=== PATIENT | female | born 1990 | race Caucasian/White ===

== ENCOUNTER 2023-08-19 18:46 | Emergency (ER) | payer OTHER ==
[~2023-08-19] VITALS: Ht 175.2 cm; Wt 131.5 kg
[2023-08-19] MEDS ORDERED: BENADRYL ALLERG25 M5 PO (21:13)
[2023-08-19] MEDS ORDERED: CLARITIN10 MG PO (21:13)
[2023-08-19] MEDS ORDERED: PREDNISONE50 MG PO (21:13)
== END 2023-08-19 19:56 | disposition left against medical advice (07) ==
LOC: ED 18:46
DX: L30.9 Dermatitis, unspecified (principal); F17.210 Nicotine dependence, cigarettes, uncomplicated

== ENCOUNTER → 2024-02-08 | Outpatient (CLI) | payer MEDICAID ==
[~2024-02-08] MED LIST: BENADRYL ALLERG25 M5 PO; CLARITIN10 MG PO; PREDNISONE50 MG PO
[2024-02-08 13:36] LABS: BASO % 0.5 % (0.0-1.0); EOS # 0.1 10*3/uL (0.0-0.4); EOS % 1.6 % (1.0-4.0); HEMATOCRIT 41.2 % (37.0-47.0); LYMPH # 2.2 10*3/uL (1.3-4.4); LYMPH % 27.7 % (27.0-41.0); MEAN CELL VOLUME 95.6 fl (81.0-99.0); MEAN CORPUSCULAR HGB 31.3 pg (27.0-31.0); MEAN CORPUSCULAR HGB CONC 32.8 g/dl (33.0-37.0); MEAN PLATELET VOLUME 8.9 fl (9.6-12.3); MONO # 0.5 10*3/uL (0.1-1.0); MONO % 5.9 % (3.0-9.0); NEUT # 5.1 10*3/uL (2.3-7.9); NEUT % 63.9 % (47.0-73.0); PLATELET COUNT AUTOMATED 341 10*3/uL (130-400); RED BLOOD COUNT 4.31 10*6/uL (4.10-5.10); RED CELL DISTRI WIDTH 14.5 % (0-14.5); RETICULOCYTE % 2.02 % (0.50-2.50); WHITE BLOOD COUNT 7.9 10*3/uL (4.8-10.8)
[2024-02-08 13:38] LABS: BILIRUBIN Negative (Negative); BLOOD Negative (Negative); CLARITY Cloudy (Clear); COLOR Yellow (Yellow); GLUCOSE Negative (Negative); KETONE Negative (Negative); LEUKO ESTERASE 1+ (Negative); NITRITE Negative (Negative); SPECIFIC GRAVITY 1.025 (1.001-1.030); UROBILINOGEN 0.2 E.U./dl (0.0-1.0)
[2024-02-08 13:47] LABS: BACTERIA 3+; EPITHELIAL CELLS 41-50; MUCOUS 1+
[2024-02-08 14:08] LABS: ALKALINE PHOSPHATASE 64 U/L (46-116); CHLORIDE 111 mmol/L (98-107); CHOLESTEROL 95 mg/dL (<200); GAMMA GLUTAMYL TRANSPEPTIDASE 18 U/L (0-73); LDL CHOLESTEROL 31 mg/dL (9-159); POTASSIUM 3.6 mmol/L (3.4-5.1); SGPT/ALT 33 U/L (5-49); T3 UPTAKE 26.7 % (22.4-36.7); THYROXINE (T4) TOTAL 7.5 ug/dl (4.5-10.9); TOTAL PROTEIN 6.7 gm/dL (6.0-8.0); TRIGLYCERIDES 104 mg/dl (<150)
[2024-02-08 14:09] LABS: BUN < 5 mg/dl (9-23)
== END ==
LOC: LAB 12:54
PROVIDERS: ATTEND Family Medicine
DX: R79.89 Other specified abnormal findings of blood chemistry (principal); R53.83 Other fatigue; R74.8 Abnormal levels of other serum enzymes; E78.5 Hyperlipidemia, unspecified; E55.9 Vitamin D deficiency, unspecified

== ENCOUNTER 2024-09-22 08:13 | Emergency (ER) | payer MEDICAID ==
[~2024-09-22] VITALS: Ht 175.2 cm; Wt 135.2 kg
[2024-09-22] MEDS ORDERED: [UNRECOGNIZED DRUG - OTHER] PO (08:59)
[2024-09-22] MEDS ORDERED: ACETAMINOPHEN 325 MG TAB PO ONE (09:40)
[2024-09-22] MEDS ORDERED: BENZONATATE 100 MG CAP PO ONE (09:40)
[2024-09-22] MEDS ORDERED: ALBUTEROL 8 GM INHALER INH ONE (09:40)
[2024-09-22] MEDS ORDERED: INHAL AID 1 KIT DEVICE INH ONE (09:40)
[2024-09-22 11:16] LABS: BILIRUBIN Negative (Negative); BLOOD Negative (Negative); CLARITY Clear (Clear); COLOR Dark Yellow (Yellow); GLUCOSE Negative (Negative); KETONE 2+ (Negative); LEUKO ESTERASE Negative (Negative); NITRITE Negative (Negative); SPECIFIC GRAVITY 1.025 (1.001-1.030)
[2024-09-22 11:33] LABS: BACTERIA 1+; WBC 0-2 wbc/hpf (0-5)
[2024-09-22 11:34] LABS: MUCOUS TRACE
[2024-09-22] MEDS ORDERED: Albuterol Sulf/Ipratropium 3 ML VIAL NEB ONE ×2 (12:55→13:04)
[2024-09-22] MEDS ORDERED: Albuterol Sulfate 2.5 MG/3 ML VIAL NEB ONE ×2 (12:55→13:03)
[2024-09-22 13:02] LABS: BASO % 0.4 % (0.0-1.0); MEAN CELL VOLUME 96.4 fl (81.0-99.0); MEAN CORPUSCULAR HGB 32.3 pg (27.0-31.0); MEAN CORPUSCULAR HGB CONC 33.5 g/dl (33.0-37.0); MEAN PLATELET VOLUME 9.4 fl (9.6-12.3); MONO # 0.5 10*3/uL (0.1-1.0); MONO % 4.9 % (3.0-9.0); NEUT # 9.5 10*3/uL (2.3-7.9); NEUT % 86.2 % (47.0-73.0); PLATELET COUNT AUTOMATED 269 10*3/uL (130-400); RED BLOOD COUNT 4.15 10*6/uL (4.10-5.10); RED CELL DISTRI WIDTH 13.7 % (0-14.5)
[2024-09-22 13:24] LABS: CHLORIDE 105 mmol/L (98-107); POTASSIUM 3.7 mmol/L (3.4-5.1)
[2024-09-22 13:30] LABS: BUN < 5 mg/dl (9-23)
[2024-09-22] MEDS ORDERED: AZITHROMYCIN 250 MG TAB PO ONE (13:45)
[2024-09-22] MEDS ORDERED: cefTRIAXone Sodium 1 GM/10 ML SYR IV ONE (13:45)
[2024-09-22] MEDS ORDERED: Ondansetron Hydrochloride 4 MG/2 ML VIAL IV ONE (16:35)
== END 2024-09-22 17:39 | disposition short-term general hospital (02) ==
LOC: ED 08:13
PROVIDERS: Emergency Medicine
DX: O98.513 Other viral diseases complicating pregnancy, third trimester (principal); J10.1 Influenza due to other identified influenza virus with other respiratory manifestations; Z20.822 Contact with and (suspected) exposure to COVID-19; O21.9 Vomiting of pregnancy, unspecified; O99.513 Diseases of the respiratory system complicating pregnancy, third trimester; J18.9 Pneumonia, unspecified organism; R09.02 Hypoxemia; Z79.899 Other long term (current) drug therapy; Z3A.38 38 weeks gestation of pregnancy